=== PATIENT | male | born 1945 | race Caucasian/White ===

== ENCOUNTER 2021-06-17 08:25 | Day surgery (SDC) | payer OTHER ==
[~2021-06-17 08:25] MED LIST: Ak-Dilate OPHTHALMIC*** 1.065 ML, Cyclogyl 1% OPHTH SOL 5 ML 1.065 ML, GATIFLOXACIN 0.5... OP ONE; BETADINE 5% OPHTHALMIC 30 ML OP ONE; Lactated Ringers 1,000 ML IV ONE; Lactated Ringers 1,000 ML IV SCH; NON-FORMULARY ITEM OP ONE; TETRACAINE 0.5% STERI-UNIT SOL OP ONE; cefUROXime sodium 0.005 GM in Sodium Chloride Flush 30 ML*** 0.5 ML IJ ONE
[2021-06-17] MEDS ORDERED: Epinephrine Preservative Free 1 MG/ML IJ ONE (08:26)
[2021-06-17] MEDS ORDERED: LIDOCAINE HCL 1% 50 MG/5 ML VL PF IJ ONE (08:26)
[2021-06-17] MEDS ORDERED: Zofran 4 MG/2 ML VIAL IV PRN (09:00)
[2021-06-17] MEDS ORDERED: ACETAZOLAMIDE 250 MG TABLET PO ONE (09:00)
[2021-06-17] MEDS ORDERED: SUBLIMAZE 100 MCG/2 ML ONE (10:29)
[2021-06-17] MEDS ORDERED: Versed 2 MG/2 ML Injection ONE (10:29)
[2021-06-17] MEDS ORDERED: DIPRIVAN 200 MG/20 ML IV ONE (10:29)
[2021-06-17] MEDS ORDERED: ROBINUL ONE (10:29)
== END 2021-06-17 11:50 | disposition home or self-care (01) ==
LOC: SDC 08:25
PROVIDERS: ATTEND Ophthalmology
DX: H25.811 Combined forms of age-related cataract, right eye (principal); Z79.84 Long term (current) use of oral hypoglycemic drugs; Z79.82 Long term (current) use of aspirin; Z79.899 Other long term (current) drug therapy
CPT/HCPCS: 82947; 99100; C1780; J0171; J2001; J2250; J2704; J3010; A9270-GY

== ENCOUNTER 2021-07-22 07:30 | Day surgery (SDC) | payer OTHER ==
[~2021-07-22 07:30] MED LIST changes: +ACETAZOLAMIDE 250 MG TABLET PO ONE; -Lactated Ringers 1,000 ML IV ONE; +Zofran 4 MG/2 ML VIAL IV PRN
[2021-07-22] MEDS ORDERED: Epinephrine Preservative Free 1 MG/ML IJ ONE (07:31)
[2021-07-22] MEDS ORDERED: LIDOCAINE HCL 1% 50 MG/5 ML VL PF IJ ONE (07:31)
[2021-07-22] MEDS ORDERED: Lactated Ringers 1,000 ML IV ONE (07:44)
[2021-07-22] MEDS ORDERED: Versed 2 MG/2 ML Injection ONE (10:14)
[2021-07-22] MEDS ORDERED: SUBLIMAZE 100 MCG/2 ML ONE (10:26)
[2021-07-22 11:14] VITALS: PULSE 59
[2021-07-22 11:29] VITALS: BP 119/73; O2SAT 93
== END 2021-07-22 11:40 | disposition home or self-care (01) ==
LOC: SDC 07:30
PROVIDERS: ATTEND Ophthalmology
DX: H25.812 Combined forms of age-related cataract, left eye (principal); E11.9 Type 2 diabetes mellitus without complications; Z79.899 Other long term (current) drug therapy
CPT/HCPCS: 82947; 99100; C1780; J0171; J2001; J2250; J3010; A9270-GY